=== PATIENT | female | born 1980 | race Caucasian/White ===

== ENCOUNTER 2017-10-09 06:27 | Day surgery (SDC) | payer OTHER ==
[~2017-10-09] VITALS: Ht 172.7 cm; Wt 70.0 kg
[~2017-10-09 06:27] MED LIST: ADVIL200 MG PO; ASCORBIC ACID500 M3 PO; CLARITIN,ALAVAR10 MG PO; CYMBALTA60 MG PO; DULCOLAX5 MG PO; KEPPRA500 MG PO; LAMICTAL200 MG PO; LAMICTAL25 MG; MAGNESIUM250 MG PO; NORCO 5/3251 TABLET PO; PROZAC20 MG PO; SUPER B COMP1 TABLET PO; THRIVE TP; TOPAMAX15 MG; TOPAMAX15 MG PO; TOPAMAX200 MG PO; VITAMIN D35000 UNIT PO
[2017-10-09 06:59] VITALS: BP 89/52
[2017-10-09] MEDS ORDERED: IBUPROFEN800 MG PO (09:24)
[2017-10-09] MEDS ORDERED: HYDROCODON-ACE1 EAC7 PO (09:24)
[2017-10-09 10:22] VITALS: BP 106/51
[2017-10-09 11:20] VITALS: BP 108/60
== END 2017-10-09 11:25 | disposition home or self-care (01) ==
LOC: SDC 06:27
PROC: 0WPJ4YZ Removal of Other Device from Pelvic Cavity, Percutaneous Endoscopic Approach (ICD-10-PCS; principal; 2017-10-09)
DX: T83.39XA Other mechanical complication of intrauterine contraceptive device, initial encounter (principal); K42.9 Umbilical hernia without obstruction or gangrene; F17.200 Nicotine dependence, unspecified, uncomplicated
CPT/HCPCS: J0131; J0330; J1100; J1885; J2250; J2405; J2710; J3010